=== PATIENT | male | born 1945 | race Caucasian/White ===

== ENCOUNTER 2016-10-11 20:52 | Emergency (ER) | payer MEDICARE, OTHER ==
[2016-10-11] MEDS ORDERED: ACETAMINOPHEN 325 MG TABLET PO ONE (21:40)
[2016-10-11] MEDS ORDERED: NORMAL SALINE 500 ML IV ONE (21:40)
[2016-10-11 22:06] LABS: BASOPHILS 0.3 % (0.0-2.0); EOSINOPHILS 0.6 % (0.0-6.0); EOSINOPHILS# 0.1 X 10^3uL (0.0-0.4); HEMATOCRIT 44.5 % (42.0-54.0); HEMOGLOBIN 15.3 g/dL (14.0-18.0); LYMPHOCYTES 21.8 % (20.0-40.0); LYMPHOCYTES# 1.9 X 10^3uL (0.8-3.8); MEAN CELL VOLUME 95.6 fL (80.0-100.0); MEAN CORPUS. HGB CONCENTRATION 34.3 g/dL (32.0-36.0); MEAN CORPUSCULAR HEMOGLOBIN 32.8 pg (29.0-35.0); MEAN PLATELET VOLUME 8.3 fL (7.4-10.4); MONOCYTES 6.7 % (2.0-10.0); MONOCYTES# 0.6 X 10^3uL (0.2-1.0); NEUTROPHILS 70.6 % (54.0-75.0); NEUTROPHILS# 6.2 X 10^3uL (2.6-6.7); PLATELET COUNT 209 X 10^3uL (130-440); RED BLOOD COUNT 4.65 X 10^6uL (4.20-6.10); WHITE BLOOD COUNT 8.8 X 10^3uL (3.9-10.7)
[2016-10-11 22:18] LABS: ALBUMIN 4.3 g/dL (3.5-5.0); ALKALINE PHOSPHATASE 113 U/L (38-126); ALT 42 U/L (21-72); AST 43 U/L (17-59); BILIRUBIN, DIRECT 0.2 mg/dL (0.0-0.4); BILIRUBIN, TOTAL 1.5 mg/dL (0.2-1.3); BLOOD UREA NITROGEN 20 mg/dL (9-20); CALCIUM 9.4 mg/dL (8.4-10.2); CHLORIDE 105 mmol/L (98-107); EST GLOMERULAR FILTRATION RATE > 60 mL/min; GLUCOSE 119 mg/dL (70-100); LIPASE 35 U/L (23-300); POTASSIUM 3.9 mmol/L (3.5-5.1); SODIUM 141 mmol/L (137-145)
[2016-10-11 23:51] LABS: URINE MUCUS NONE SEEN (Up to 25%); URINE SQUAMOUS EPITHELIAL CELL NONE SEEN (<= 15/hpf)
[2016-10-11] MEDS ORDERED: LEVOFLOXACIN/D5W 100 ML IV ONE (23:53)
[2016-10-11 23:59] LABS: URINE APPEARANCE TURBID; URINE COLOR AMBER
[2016-10-12] LABS: URINE LEUKOCYTE ESTERASE 500 WBC/uL (3+) (NEGATIVE); URINE NITRITE NEGATIVE (NEGATIVE); URINE PH 5.5 (5-7); URINE PROTEIN 300mg/dL (3+) (NEG - TRACE); URINE SPECIFIC GRAVITY 1.025 (0.001-1.035)
[2016-10-12 00:01] LABS: URINE BILIRUBIN NEGATIVE (NEGATIVE); URINE BLOOD 250 Ery/uL (3+) (NEGATIVE); URINE GLUCOSE NORMAL (NEGATIVE); URINE KETONE NEGATIVE (NEGATIVE); URINE UROBILINOGEN 0.2mg/dL (Normal) (NEG-1mg/dL)
[2016-10-12 00:02] LABS: URINE BACTERIA >50 ORGANISMS/hpf (<10/hpf)
--- NOTE | 2016-10-12 01:34 | ER NURSING DOCUMENTATION ---
Nurse's Notes [facility] Name:Yordan Richardson Age:71 yrs Sex:Male :1945 Arrival Date:10/11/2016 Time:20:52 Bed4 Private MD:Physician, No Diagnosis:Bladder Infection (UTI);Dehydration Presentation: 10/11 21:10 Presenting complaint: Patient states: pt states hes had a fever today. denies cough. bw2 Transition of care: patient was not received from another setting of care. 21:10 Acuity: FLAKO 3 bw2 21:10 Method Of Arrival: Walk In [facility] Triage Assessment: 21:11 General: Appears in no apparent distress, Behavior is appropriate for age. Pain: Denies bw2 pain. Historical: - Allergies: No known drug Allergies; - Tetanus: < 10 years. - Ebola Screening: : Patient negative for fever greater than or equal to 101.5 degrees Fahrenheit, and additional compatible Ebola Virus Disease symptoms. Patient denies exposure to infectious person. Patient denies travel to an Ebola-affected area in the 21 days before illness onset. No symptoms or risks identified at this time. . - Immunization history: Flu Vaccine < 1 year. - Social history: Smoking status: Patient states was never smoker of tobacco. Screenin:11 Infectious Disease Risk None. Abuse screen: Denies threats or abuse. Denies injuries bw2 from another. Nutritional screening: No deficits noted. Assessment: 21:11 See Triage Assessment done by same RN. bw2 Vital Signs: 21:11 BP 158 / 90; Pulse 110; Resp 18; Temp 101(O); Pulse Ox 91% on R/A; Weight 90.72 kg; bw2 Height 5 ft. 10 in. (177.80 cm); Pain 0/10; 10/12 01:31 BP 134 / 66; Pulse 70; Resp 18 S; Temp 97.8; Pulse Ox 94% on R/A; Pain 0/10; bw2 10/11 21:11 Body Mass Index 28.70 (90.72 kg, 177.80 cm) bw2 Martin Coma Score: 10/11 21:30 Eye Response: spontaneous(4). Verbal Response: oriented(5). Motor Response: obeys cd commands(6). Total: 15. ED Course: 20:53 Patient arrived in ED. em2 20:53 Physician, No is Private Physician. em2 21:09 Leonor Hahn is Primary Nurse. bw2 21:10 Triage completed. bw2 21:12 Valuables Remains with patient. bw2 21:20 Placido Abad MD is Attending Physician. cd 22:03 Inserted peripheral IV: 18 gauge in right forearm. bw2 23:07 Urine collected. Clean catch specimen. em3 Administered Medications: 21:23 CANCELLED (Physician Discretion): NS 0.9% 2000 ml IV at bolus once cd 21:47 Drug: Acetaminophen 975 mg; Route: PO; bw2 22:17 Follow up: Response: Temperature is decreased bw2 21:48 Drug: NS 0.9% 500 ml; Route: IV; Rate: bolus; Site: left antecubital; 2 10/12 01:32 Follow up: IV Status: Completed infusion bw2 10/11 23:44 Drug: Levaquin 500 mg; Route: IVPB; Site: right forearm; 2 10/12 00:03 Follow up: Response: No adverse reaction; IV Status: Completed infusion 2 Outcome: 01:17 Discharge ordered by . 01:29 Discharged to home ambulatory. bw2 01:29 Condition: good 01:29 Discharge Assessment: Patient awake, alert and oriented x 3. No cognitive and/or functional deficits noted. Patient verbalized understanding of disposition instructions. 01:31 Discharge instructions given to patient, family, Instructed on follow up and referral bw2 plans. Incentive Spirometer Demonstrated understanding of instructions, medications, Prescriptions given X 1. 01:33 Patient left the ED. bw2 18:34 Discharge F/U Call: Unable to reach: no answer rh Signatures: Placido Abad MD MD cd Norman, David dnn Meieric-reg, Yvonne-reg em2 Diego Clarke em3 Stephany Fuller Leonor Hahn bw2
--- NOTE | 2016-10-12 01:34 | ER PHYSICIAN DOCUMENTATION ---
Physician Documentation [facility] Name:Yordan Richardson Age:71 yrs Sex:Male :1945 Arrival Date:10/11/2016 Time:20:52 Bed4 Private MD:Physician, [facility] Placido Holland Disposition: 10/12/16 01:17 Discharged to Home/Self Care. Impression: Bladder Infection (UTI), Dehydration. - Condition is Good. - Discharge Instructions: BLADDER INFECTION, Male (Adult), DEHYDRATION (6y-Adult). - Prescriptions for Levaquin 500 mg Oral Tablet - take 1 tablet by ORAL route once daily for 10 days; 10 tablet. - Medical Reconciliation form form. - Follow up: Private Physician; When: 7 - 10 days; Reason: Recheck today's complaints, Continuance of care. - Problem is new. - Symptoms have improved. - Notes: Drink 2 -3 quarts of water every day to stay hydrated. Take Levaquin 500mg by mouth every day for 10 days Take Tylenol 650mg by mouth every 6 hours for 2 days. Return to closest ER if high fever, shaking chills, rigors or back pain arises. Follow up with your doctor in 7 - 10 days. HPI: 10/11 21:00 This 71 yrs old Male presents to ER via Walk In with complaints of Fever and cd chills today. 21:00 The patient reports fever, not measured (subjective). cd 21:00 The patient reports fever, with an emergency department temperature of 101.0 degrees cd Fahrenheit. Onset: The symptom(s)/episode began/occurred acutely, today. Associated signs and symptoms: Pertinent positives: chills, Pertinent negatives: abdominal pain, chest pain, cough, diarrhea, earache, headache, myalgias, runny nose, sinus congestion, shortness of breath, sore throat, vomiting, or UTI symptoms. Severity of symptoms: At their worst the symptoms were moderate in the emergency department the symptoms are unchanged. The patient has not experienced similar symptoms in the past. Patient has BPH and prostrate issues, but currently does not have any UTI symptoms. Historical: - Allergies: No known drug Allergies; - Tetanus: < 10 years. - Ebola Screening: : Patient negative for fever greater than or equal to 101.5 degrees Fahrenheit, and additional compatible Ebola Virus Disease symptoms. Patient denies exposure to infectious person. Patient denies travel to an Ebola-affected area in the 21 days before illness onset. No symptoms or risks identified at this time. . - Immunization history: Flu Vaccine < 1 year. - Social history: Smoking status: Patient states was never smoker of tobacco. ROS: 21:15 Eyes: Negative for injury, pain, redness, discharge, blurry vision and loss of vision. cd ENT: Negative for injury, pain, epistaxis and discharge. Neck: Negative for injury, pain, stiffness and swelling. Cardiovascular: Negative for chest pain, palpitations, edema and pleuritic pain. Respiratory: Negative for shortness of breath, dyspnea on exertion, cough, sputum production, wheezing, hemoptysis and pleuritic chest pain. Abdomen/GI: Negative for abdominal pain, nausea, vomiting, diarrhea, constipation, distension, melena, hematochezia and hematemesis. Back: Negative for injury, pain or muscle spasms. : Negative for injury, bleeding, discharge, swelling, dysuria, frequency or urgency. MS/Extremity: Negative for injury, deformity, edema, calf tenderness, pain or coldness. Skin: Negative for injury, rash, itching and discoloration. 21:15 Neuro: Negative for headache, weakness, numbness, tingling, and seizure. cd 21:15 Constitutional: Positive for chills, fever, poor PO intake. 21:15 All other systems are negative. Exam: Head/Face: Normocephalic, atraumatic. Eyes: Pupils equal round and reactive to light, extra-ocular motions intact. Lids and lashes normal. Conjunctiva and sclera are non-icteric and not injected. Cornea within normal limits. Periorbital areas with no swelling, redness, or edema. 21:30 ENT: Nares patent. No nasal discharge, no septal abnormalities noted. Tympanic cd membranes are normal and external auditory canals are clear. Oropharynx with no redness, swelling, or masses, exudates, or evidence of obstruction, uvula midline. Mucous membranes dry Neck: Trachea midline, no thyromegaly or masses palpated, and no cervical lymphadenopathy. Supple, full range of motion without nuchal rigidity, or vertebral point tenderness. No Meningismus. Chest/axilla: Normal chest wall appearance and motion. Nontender with no deformity. No lesions are appreciated. Cardiovascular: Regular rate and rhythm with a normal S1 and S2. No gallops, murmurs, or rubs. Normal PMI, no JVD. No pulse deficits. Respiratory: Lungs have equal breath sounds bilaterally, clear to auscultation and percussion. No rales, rhonchi or wheezes noted. No increased work of breathing, no retractions or nasal flaring. Abdomen/GI: Soft, non-tender, with normal bowel sounds. No distension or tympany. No guarding or rebound. No evidence of tenderness throughout. Back: No spinal tenderness. No costovertebral tenderness. Full range of motion. Skin: Warm, dry with normal turgor. Normal color with no rashes, no lesions, and no evidence of cellulitis. MS/ Extremity: Pulses equal, no cyanosis. Neurovascular intact. Full, normal range of motion. 21:30 Neuro: Awake and alert, GCS 15, oriented to person, place, time, and situation. Cranial nerves II-XII grossly intact. Motor strength 5/5 in all extremities. Sensory grossly intact. Cerebellar exam normal. Normal gait. 21:30 Constitutional: The patient appears alert, awake, comfortable, non-diaphoretic, non-toxic, well developed, well nourished, febrile, in obvious distress, mildly distressed. Vital Signs: 21:11 BP 158 / 90; Pulse 110; Resp 18; Temp 101(O); Pulse Ox 91% on R/A; Weight 90.72 kg; bw2 Height 5 ft. 10 in. (177.80 cm); Pain 0/10; 10/12 01:31 BP 134 / 66; Pulse 70; Resp 18 S; Temp 97.8; Pulse Ox 94% on R/A; Pain 0/10; bw2 10/11 21:11 Body Mass Index 28.70 (90.72 kg, 177.80 cm) bw2 Emmanuelle Coma Score: 10/11 21:30 Eye Response: spontaneous(4). Verbal Response: oriented(5). Motor Response: obeys cd commands(6). Total: 15. MDM: 21:05 Data interpreted: Pulse oximetry: on room air is 94 %. Interpretation: normal. cd 21:20 Patient medically screened. cd 21:35 Differential diagnosis: viral Infection, bacterial infection, pneumonia UTI. Data cd reviewed: vital signs, nurses notes, old medical records, and as a result, I will continue to observe the patient, administer IV fluids, NS bolus, NS maintenence, prescribe pain medication, acetaminophen. 10/12 01:20 Counseling: I had a detailed discussion with the patient and/or guardian regarding: the cd historical points, exam findings, and any diagnostic results supporting the discharge/admit diagnosis, lab results, the need for outpatient follow up, for a recheck, with the patient's primary care provider, to return to the emergency department if symptoms worsen or persist or if there are any questions or concerns that arise at home. Response to treatment: the patient's symptoms have markedly improved after treatment, the patient's condition has returned to base line, patient is well hydrated. and as a result, I will discharge patient. 10/11 22:07 Order name: CBC AUTO DIF, MDIF/RMOR IF IND; Complete Time: 22:40 [facility] 10/11 22:11 Interpretation: Normal. 10/11 22:19 Order name: LACTATE; Complete Time: 22:40 [facility] 10/11 22:40 Interpretation: Normal. 10/11 22:19 Order name: BASIC METABOLIC PANEL; Complete Time: 22:40 [facility] 10/11 22:40 Interpretation: Normal Except: CARBON DIOXIDE 20. 10/11 22:19 Order name: HEPATIC PANEL; Complete Time: 22:40 [facility] 10/11 22:40 Interpretation: Normal Except: BILIRUBIN, TOTAL 1.5. 10/11 22:19 Order name: LIPASE; Complete Time: 22:40 [facility] 10/11 22:40 Interpretation: Normal. 10/12 00:03 Order name: UA W/ MICRO -CULTURE IF IND; Complete Time: 01:22 [facility] 10/12 07:40 Order name: URINE CULTURE [facility] 10/12 22:50 Order name: BLOOD CULTURE [facility] 10/12 22:50 Order name: BLOOD CULTURE [facility] 10/13 18:29 Order name: CHEST; SINGLE VIEW [id number] [facility] 10/11 21:22 Order name: I & O; Complete Time: 21:40 10/11 21:22 Order name: NPO; Complete Time: 21:40 10/11 21:22 Order name: Oxygen; Complete Time: 21:47 10/11 21:22 Order name: Place Patient On Monitor; Complete Time: 22:16 cd 10/11 21:22 Order name: Pulse Ox Continuous; Complete Time: 22:16 cd 10/11 21:22 Order name: Accucheck; Complete Time: 22:16 cd 10/11 21:22 Order name: Iv Saline Lock; Complete Time: 21:48 cd Dispensed Medications: 10/11 21:23 CANCELLED (Physician Discretion): NS 0.9% 2000 ml IV at bolus once 21:47 Drug: Acetaminophen 975 mg; Route: PO; [facility] 22:17 Follow up: Response: Temperature is decreased [facility] 21:48 Drug: NS 0.9% 500 ml; Route: IV; Rate: bolus; Site: left antecubital; [facility] 10/12 01:32 Follow up: IV Status: Completed infusion [facility] 10/11 23:44 Drug: Levaquin 500 mg; Route: IVPB; Site: right forearm; [facility] 10/12 00:03 Follow up: Response: No adverse reaction; IV Status: Completed infusion [facility] Signatures: Placido Abad MD MD cd Wisely, Beth [facility]
--- NOTE | 2016-10-13 17:01 | RADIOLOGY REPORT ---
A limited single portable view of the chest demonstrates the heart and vessels to be unremarkable. The lung montejo are clear. 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 No acute cardiopulmonary abnormality. MTDD
== END 2016-10-12 01:33 | disposition home or self-care (01) ==
LOC: ER 20:52
DX: N39.0 Urinary tract infection, site not specified (principal); E86.0 Dehydration; R50.9 Fever, unspecified
CPT/HCPCS: 71010; 80048; 80076; 81001; 83605; 83690; 85025; 87040; 87086; 96361; 96365; 99284; J1956; J7040